=== PATIENT | male | born 1975 | race Caucasian/White ===

== ENCOUNTER 2020-04-26 18:00 | Outpatient (CLI) | payer BC, OTHER | END 2020-04-26 18:01 | disposition home or self-care (01) | LOC: SLEEPLAB 18:00 | PROVIDERS: ATTEND Internal Medicine Pulmonary Disease | DX: G47.33 Obstructive sleep apnea (adult) (pediatric) (principal); R53.83 Other fatigue; R06.83 Snoring; J44.9 Chronic obstructive pulmonary disease, unspecified; E66.9 Obesity, unspecified; R40.0 Somnolence; G47.10 Hypersomnia, unspecified; G47.00 Insomnia, unspecified; Z68.41 Body mass index [BMI] 40.0-44.9, adult | CPT/HCPCS: 95801 ==

== ENCOUNTER 2024-09-06 15:41 | Emergency (ER) | payer OTHER ==
[2024-09-06] MEDS ORDERED: Ketorolac Tromethamine 30 MG (1 mL) VIAL ONE (17:57)
== END 2024-09-06 18:14 | disposition home or self-care (01) ==
LOC: ERS 15:41
DX: M79.10 Myalgia, unspecified site (principal); M79.604 Pain in right leg; M79.605 Pain in left leg; E11.9 Type 2 diabetes mellitus without complications; I10 Essential (primary) hypertension; F17.210 Nicotine dependence, cigarettes, uncomplicated; V59.50XA Passenger in pick-up truck or van injured in collision with unspecified motor vehicles in traffic accident, initial encounter
CPT/HCPCS: 72072; 72100; 96372; 99283; J1885

== ENCOUNTER 2024-09-30 13:21 | Outpatient (CLI) | payer OTHER | END 2024-09-30 13:22 | disposition home or self-care (01) | LOC: MRI 13:21 | PROVIDERS: ATTEND Nurse Practitioner Family | DX: M54.2 Cervicalgia (principal); M25.562 Pain in left knee; S83.242A Other tear of medial meniscus, current injury, left knee, initial encounter; S12.110A Anterior displaced Type II dens fracture, initial encounter for closed fracture; R60.9 Edema, unspecified | CPT/HCPCS: 72141 ==

== ENCOUNTER 2024-09-30 18:17 | Emergency (ER) | payer OTHER | END 2024-09-30 22:13 | disposition home or self-care (01) | LOC: ERS 18:17 | DX: S12.110A Anterior displaced Type II dens fracture, initial encounter for closed fracture (principal); F17.210 Nicotine dependence, cigarettes, uncomplicated; I10 Essential (primary) hypertension; E11.9 Type 2 diabetes mellitus without complications; K21.9 Gastro-esophageal reflux disease without esophagitis; Z79.899 Other long term (current) drug therapy; V89.2XXA Person injured in unspecified motor-vehicle accident, traffic, initial encounter | CPT/HCPCS: 72040; 72125 ==